=== PATIENT | female | born 1975 | race Caucasian/White ===

== ENCOUNTER 2022-01-27 01:55 | Day surgery (SDC) | payer OTHER, MEDICAID, SELFPAY ==
[2022-01-20 09:56] VITALS: BMI 33.5
--- NOTE | 2022-01-20 10:02 | SUR.PREOP ---
Report to the Outpatient Waiting Room, entrance under the green pavilion located off [facility], at time 0600 on date 01/27/22. Planned Procedure Time: 0730. Time changes happen often and if your time is changed the preop area will call you the afternoon before. - You and your visitor will be asked to self-screen and do not enter if you have any COVID symptoms. - We encourage only one visitor and NO visitors under age 16 are allowed at this time. Your visitor will receive communication by the phone number that is given day of service. - The patient visitor is requested to social distance or may leave the building when not with patient due to restrictions. - A mask is required within the hospital. Patients may have clear liquids (water, carbonated beverages, clear teas, apple juice) until 3 hours prior to surgery with a maximum of 20 ounces. - No food from midnight until time of surgery - Infants may have breast milk until 4 hours before surgery, formula 6 hours prior to surgery. - Children will be allowed to drink immediately following surgery. If applicable, please bring a bottle or sippy cup to assist with drinking. Juice, water, soda, and popsicles are readily available. For infants on formula, please bring formula the day of surgery. Pacifiers are allowed. Take the following medications with a SIP of water the morning of surgery: __N/A Medications to discontinue per physician N/A Date to take last dose Please no make-up, nail bruneian, hairspray, perfume, deodorant, or body powder the day of surgery. No jewelry (including any body piercings) or valuables the day of surgery, leave them at home. Please take a shower or bath the night before, or the morning of, surgery with an antibacterial soap. Wear comfortable, loose fitting clothing. Children are encouraged to wear pajamas. - Jewelry must be removed prior to entering the operating room. Rings and piercings that are not removed may be cut off. - The hospital will not accept responsibility for valuables. - Please leave all valuables, including medications, at home the day of surgery. If you are going home after surgery, a licensed garbage collector driver must drive you home. - NO public transportation without another adult. - We recommend that an adult stay with you for 24 hours following discharge. - We also recommend that you do not drive, make important decision, drink alcoholic beverages, or take any drugs that were not prescribed by your health care provider for at least 24 hours after your discharge time. For Pediatric surgeries, we recommend two adults accompany the child home. Follow any additional instructions given to you from your surgeon. If you or anyone in your household have experienced Covid symptoms in the past week, please notify your surgeon or the nurse liaison at the phone number below for possible testing. Telephone instructions given to PATIENT and asked if any additional questions and then verbalized understanding. Patient advised to call surgeon office or pre surgery nurse liaison [phone] if any additional questions.
--- NOTE | 2022-01-26 13:17 | P.HP_ITS ---
H&P: HPI History of Present Illness Date/Time: 01/26/22 13:17 46-year-old female presents with complaints of right lower quadrant pain and ovarian cysts. She has a history of hysterectomy as well as left salpingo oophorectomy. Pain has been occurring since November and she has needed pain medication to help her through that period of time. She continued with this right lower quadrant pain and desires operative management. We had discussed hormonal treatment but due to longstanding pain she states that she would like to have this ovary removed. Chief Complaint: Pelvic pain Review of Systems Review of Systems: All systems reviewed & are unremarkable except as noted in HPI and below PMFSH Past Medical History Medical History Anxiety no meds Surgical History Surgical History Delivery by section (2005) H/O: hysterectomy (2010) Hx of cholecystectomy (~2005) S/P gastric sleeve procedure (2015) Family History Family History Mother Lung cancer Social History Social History Smoking status: Never smoker Alcohol intake: never Substance use: never Substance use type: does not use and painkillers Other substance usage details: suicide attempt in high school Living arrangements: with family Additional living arrangements comments: Additional occupation/education comments: [employer] Gender identity (if verbalized by the patient): Female Sexual Orientation (if Verbalized by the Patient): Straight or Heterosexual Meds Home Medications and Allergies Home Medications Medication Instructions Recorded Confirmed Type ketorolac 10 mg tablet 10 mg PO Q6H PRN Pain 12/14/21 01/20/22 History Allergies Allergy/AdvReac Type Severity Reaction Status Date / Time zolpidem Allergy Severe Hallucinati Verified 12/14/21 16:05 ng Exam Const: General: cooperative, healthy appearing and comfortable Resp: Effort & Inspection: normal respiratory effort Auscultation: clear to auscultation bilaterally Cardio: Rate: regular rate Rhythm: regular rhythm GI: Inspection: normal to inspection Auscultation: normal bowel sounds : External Female Exam: normal external appearance Speculum Exam - Vagina: normal appearance of the vagina Speculum Exam - Cervix: Cervix absent Bimanual exam- vagina & uterus: uterus absent Bimanual Exam- Adnexa, other: Adnexal mass present ( right adnexa 5-6 cm and tender) Assessment and Plan Assessment and plan (1) Pelvic pain: Code(s): R10.2 - Pelvic and perineal pain Status: Acute (2) Right ovarian cyst: Code(s): N83.201 - Unspecified ovarian cyst, right side Status: Acute Assessment and Plan: We have discussed more conservative measures but she strongly desires to have her ovary removed. I have also discussed with her that this will place her into menopause and may need hormonal therapy after the procedure. She states good un derstanding agrees to the above and will see how she does after surgery and if hormone replacement is necessary. Plan 1. Proceed with robotic assisted right salpingo oophorectomy.
[2022-01-27] VITALS (9 sets, daily range): BP systolic 104–131; BP diastolic 66–80; PULSE 63–77; RESP 11–16; TEMP 36.4–36.6; O2SAT 99–100; BMI 32.7
[2022-01-27] MEDS: LACTATED RINGERS 1,000 ML 30 ML IV CONT ×2 (06:30→09:46)
[2022-01-27] MEDS: ACETAMINOPHEN 500 MG TABLET 1000 MG PO (06:39)
[2022-01-27] MEDS: KETOROLAC 15 MG/ML VIAL (*BKC) IV PUSH (06:40)
--- NOTE | 2022-01-27 06:49 | WPDANESEPPF ---
Anes - Initial Pre Proc Eval Procedure: Operation Date: 01/27/22 07:30 Proposed Procedures p Robotic Assisted Laparoscopic Right Salpingo-Oophorectomy - Antwan Jensen MD Date/Time: 01/27/22 06:49 Surgeon: Antwan Jensen MD Pre Op Diagnosis: right ovarian cyst Patient Data Age: 46 Gender: F Height: 1.63 m Weight: 86.5 kg Allergies Allergy/AdvReac Type Severity Reaction Status Date / Time zolpidem Allergy Severe Hallucinati Verified 01/27/22 06:21 ng Home Medications Medication Instructions Recorded Confirmed Type ketorolac 10 mg tablet 10 mg PO Q6H PRN Pain 12/14/21 01/20/22 History Patient hx anesthesia problems: none Family hx anesthesia problems: none Results Review: All pre-operative results and documents have been reviewed as part of the pre-operative evaluation. [facility] Past Medical History Medical History (Updated 01/27/22 @ 06:49 by Aguila Wagoner MD) Anxiety no meds Obesity Surgical History Surgical History Delivery by section (2005) H/O: hysterectomy (2010) Hx of cholecystectomy (~2005) S/P gastric sleeve procedure (2015) Family History Family History Mother Lung cancer Social History Social History Smoking status: Never smoker Alcohol intake: never Substance use: never Substance use type: does not use and painkillers Other substance usage details: suicide attempt in high school Living arrangements: with family Additional living arrangements comments: Additional occupation/education comments: [employer] Gender identity (if verbalized by the patient): Female Sexual Orientation (if Verbalized by the Patient): Straight or Heterosexual Anes - Eval Final PreProcedure Day of Procedure 01/27/22 06:49 Patient weight: obese Heart: regular rate and rhythm Lungs: clear to auscultation Airway: Mallampati scale class II Neurological: alert and oriented Last oral intake: >/= 8 hours ASA classification: II Emergent: no Anesthetic plan: proceed Anesthesia type and monitoring: general ETT and standard monitoring Results Review: All pre-operative results and documents have been reviewed as part of the pre-operative evaluation. Informed Consent: The patient's anesthetic plan and its attendant risks and benefits were discussed with the patient/family/POA. Questions were solicited and answers provided to the satisfaction of the patient/family/POA.
--- NOTE | 2022-01-27 07:23 | WPDHPUPDATE1 ---
History and Physical Update Update Date/Time: 01/27/22 07:23 History and Physical has been reviewed, including an updated exam of the patient. There are NO changes in the patient's condition. Risks, benefits, and alternatives have been discussed and questions answered. Patient agrees to proceed with procedure.
--- NOTE | 2022-01-27 09:13 | W.PM.PROC2 ---
Procedure Note - Detailed Date of Procedure 01/27/22 Pre-op Diagnosis 1. Right ovarian mass 2. Pelvic pain Post-op Diagnosis Same Procedure Performed Robotic assisted laparoscopic right salpingo-oophorectomy Surgeon Antwan Jensen MD Anesthesia General Findings 1. Left adnexa and uterus surgically absent 2. Right ovary with multiple cysts. Description of Procedure Patient was prepped and draped in usual manner for this procedure. Abdominal trocar sites were marked and placed under direct visualization. Patient was placed in Trendelenburg position and the Juan Antonio assisted was attached to the trocars. Using the cautery cutting instrument the right infundibulopelvic ligament was cauterized and cold in multiple bites and was hemostatic. The tube and ovary were then removed separately and without difficulty through the right upper quadrant port. At this point the procedure was considered terminated and the incisions were approximated using 4-0 Monocryl and the patient was sent to recovery room in stable condition. Estimated Blood Loss 20 Drains No Packing No Pathology Yes Complications No immediate complications Condition Stable Disposition PACU [facility] Billing Surgery - Charge Forward: Surgery Billing
[2022-01-27] MEDS: fentaNYL CITRATE INJ (*CRX) 100 MCG/2 ML VIAL 25 MCG IV PUSH ×2 (09:42→09:46)
[2022-01-27] MEDS: oxyCODONE HCL (*CRX) 5 MG TAB IR PO (10:50)
== END 2022-01-27 11:35 | disposition home or self-care (01) ==
PROVIDERS: PCP Physician Assistant; Visit Provider Obstetrics & Gynecology
PROC: 8E0W4CZ Robotic Assisted Procedure of Trunk Region, Percutaneous Endoscopic Approach (ICD-10-PCS; CPT 49320; principal; 2022-01-27 07:30)
DX: R10.31 Right lower quadrant pain (principal); N83.01 Follicular cyst of right ovary
CPT/HCPCS: 58661; 36415; 86850; 86900; 86901; 88305; A9270; J0330; J0461; J1100; J1885; J2250; J2405; J2704; J2710; J3010; J7030; J7120